=== PATIENT | female | born 1995 | race Caucasian/White ===

== ENCOUNTER 2017-03-29 10:03 | Emergency (ER) | payer SELFPAY ==
[~2017-03-29] VITALS: Ht 160 cm; Wt 65.8 kg
[2017-03-29 10:03] VITALS: BP 132/77
[2017-03-29] MEDS ORDERED: IBUPROFEN 600 MG TABLET PO ONE ×2 (10:24→10:30)
== END 2017-03-29 10:36 | disposition home or self-care (01) ==
LOC: ER 10:11
DX: S96.912A Strain of unspecified muscle and tendon at ankle and foot level, left foot, initial encounter (principal); W01.0XXA Fall on same level from slipping, tripping and stumbling without subsequent striking against object, initial encounter; Y93.89 Activity, other specified; Y92.89 Other specified places as the place of occurrence of the external cause; Y99.8 Other external cause status
CPT/HCPCS: 99283; A4606; Z7610

== ENCOUNTER 2017-03-29 21:38 | Emergency (ER) | payer SELFPAY ==
[~2017-03-29] VITALS: Ht 144.8 cm; Wt 62.6 kg
--- NOTE | 2017-03-29 21:55 | NUR ---
"ABD CRAMPING X4 HOURS; JUST STARTED MY PERIODS"; ADMITS TO DRINKING ALCOHOL"NAUSEA NO VOMITING" PLACED ON MONITOR. VSS
--- NOTE | 2017-03-29 22:04 | NUR ---
AT BEDSIDE FOR EVAL
--- NOTE | 2017-03-29 22:14 | NUR ---
URINE SAMPLE COLLECTED SENT TO LAB
[2017-03-29 22:20] LABS: APPEARANCE,URINE CLEAR (CLEAR); BILIRUBIN,URINE NEGATIVE (NEGATIVE); BLOOD, URINE 3+ Ery/uL (NEGATIVE); COLOR,URINE YELLOW (YELLOW); KETONES,URINE NEGATIVE (NEGATIVE); LEUKOCYTE ESTERASE ,URINE TRACE (NEGATIVE); NITRITE, URINE NEGATIVE (NEGATIVE); PROTEIN,URINE NEGATIVE (NEGATIVE); UGLUCOSE NEGATIVE (NEGATIVE); UROBILINOGEN,URINE 0.2 EU/dL (0.2)
[2017-03-29 22:22] LABS: PREGNANCY TEST URINE QUAL NEGATIVE (NEGATIVE)
[2017-03-29] MEDS ORDERED: IBUPROFEN 400 MG TABLET PO ONE (22:30)
[2017-03-29] MEDS ORDERED: IBUPROFEN 400 MG TABLET ONE (22:33)
[2017-03-29 22:35] LABS: ADD URINE CULTURE YES; BACTERIA,URINE 2+ /HPF (None Seen); RBC,URINE 15-25 /HPF (0-2); SQUAMOUS EPITHELIAL CELL,UR Few /HPF (None Seen); WBC,URINE 0-2 /HPF (0-3)
[2017-03-29 22:58] VITALS: BP 148/78
--- NOTE | 2017-03-29 22:58 | NUR ---
Patient discharged to home in stable condition. Written and verbal after care instructions given. Patient verbalizes understanding of instruction.
== END 2017-03-29 23:26 | disposition home or self-care (01) ==
LOC: ER 21:38
DX: N94.6 Dysmenorrhea, unspecified (principal); F17.200 Nicotine dependence, unspecified, uncomplicated; Z59.0 Homelessness
CPT/HCPCS: 81001; 84703; 87086; 99284; A4606; Z7610; 81000-TC; 87186-TC